=== PATIENT | female | born 1985 | race Caucasian/White ===

== ENCOUNTER 2017-01-18 10:24 | Emergency (ER) | payer OTHER ==
[2017-01-18 10:41] LABS: BILIRUBIN,URINE NEGATIVE (NEGATIVE); PH,URINE 7.5 PH (5.0-7.5)
[2017-01-18 10:43] LABS: UA CHARGE (STRIP ONLY) YES; UR CULTURE IF IND NOT INDICATED
[2017-01-18 10:44] LABS: HCG UR QUAL NEGATIVE
[2017-01-18] MEDS ORDERED: MORPHINE 2 MG/ML SYRINGE IVP STA ×2 (10:48→12:46)
[2017-01-18] MEDS ORDERED: SODIUM CHLORIDE 0.9% 1,000 ML IV ONE (10:48)
[2017-01-18 10:49] LABS: BASOPHILS # (AUTO) 0.1 10^3/uL (0.0-0.1); BASOPHILS % (AUTO) 0.6 %; EOSINOPHILS # (AUTO) 0.1 10^3/uL (0.0-0.7); EOSINOPHILS % (AUTO) 1.3 %; HCT - HEMATOCRIT 41.2 % (37.0-47.0); HGB - HEMOGLOBIN 14.6 g/dL (12.0-16.0); LYMPHOCYTES # (AUTO) 1.3 10^3/uL (1.5-3.5); LYMPHOCYTES % (AUTO) 13.4 %; MEAN CORPUSCULAR HEMOGLOBIN 31.9 pg (27.0-31.0); MEAN CORPUSCULAR HGB CONC 35.4 g/dL (32.0-36.0); MEAN CORPUSCULAR VOLUME 90.1 fL (81.0-99.0); MEAN PLATELET VOLUME 7.6 fL (7.9-10.8); MONOCYTES # (AUTO) 0.4 10^3/uL (0.0-1.0); MONOCYTES % (AUTO) 4.3 %; NEUTROPHILS # (AUTO) 7.9 10^3/uL (1.5-6.6); NEUTROPHILS % (AUTO) 80.4 %; NUCLEATED RED BLOOD CELLS AUTO 0.1 /100WBC; RED BLOOD COUNT 4.57 10^6/uL (4.20-5.40); UNCORRECTED WHITE BLOOD COUNT 9.8 x10^3/uL; WHITE BLOOD COUNT 9.8 x10^3/uL (4.8-10.8)
--- NOTE | 2017-01-18 10:51 | ED Physician Documentation ---
History of Present Illness - Stated complaint Stated Complaint: L SIDE PAIN - Chief complaint Chief Complaint: Abd Pain - Additonal information Additional information: hx from pt 31 f denies preg acute onset atraumatic L flank pain coming in waves, onset this AM no numbness or weakness no feve + NV no abd pain no hematuria dysuria took ibuprofen 600 and one vicodin s relief Review of Systems Constitutional: denies: Fever, Chills Cardiac: denies: Chest pain / pressure Respiratory: denies: Dyspnea GI: reports: Nausea, Vomiting. denies: Abdominal Pain : denies: Dysuria, Hematuria Musculoskeletal: reports: Back pain Neurologic: denies: Focal weakness, Numbness Endocrine: denies: Easy bruising / bleeding Immunocompromised: denies: Immunocompromised PD PAST MEDICAL HISTORY - Present Medications Home Medications: Ambulatory Orders Medication Instructions Recorded Confirmed Ibuprofen [Motrin] 400 mg PO Q6H PRN #30 tablet 01/18/17 Ondansetron Odt [Zofran] 4 mg TL Q6H PRN #10 tablet 01/18/17 Oxycodone HCl/Acetaminophen 1 each PO Q6HR PRN #15 tablet 01/18/17 [Percocet 5-325 mg Tablet] Tamsulosin [Flomax] 0.4 mg PO DAILY #7 capsule 01/18/17 - Allergies Allergies/Adverse Reactions: Allergies Allergy/AdvReac Type Severity Reaction Status Date / Time No Known Drug Allergies Allergy Verified 01/18/17 10:29 PD ED PE NORMAL - Vitals Vital signs reviewed: Yes - General General: Alert and oriented X 3 - Cardiac Cardiac: RRR - Respiratory Respiratory: No respiratory distress, Clear bilaterally - Abdomen Abdomen: Soft, Non tender - Back Back: No: No CVA TTP (+ L CVA TTP) - Derm Derm: Normal color - Neuro Neuro: No motor deficit, No sensory deficit Results - Vitals Vitals: Vital Signs - 24 hr 01/18/17 01/18/17 10:26 12:34 Temperature 36.8 C Heart Rate 56 L 59 L Respiratory 20 16 Rate Blood Pressure 141/90 H 110/72 O2 Saturation 100 98 Oxygen O2 Source Room air - Labs Labs: Laboratory Tests 01/18/17 01/18/17 01/18/17 10:25 10:25 10:45 WBC 9.8 RBC 4.57 Hgb 14.6 Hct 41.2 MCV 90.1 MCH 31.9 H MCHC 35.4 RDW 12.0 Plt Count 325 MPV 7.6 L Neut # 7.9 H Lymph # 1.3 L Victoria # 0.4 Eos # 0.1 Baso # 0.1 Absolute Nucleated RBC 0.01 Nucleated RBC % 0.1 Sodium Potassium Chloride Carbon Dioxide Anion Gap BUN Creatinine Estimated GFR (MDRD) Glucose Calcium Total Bilirubin AST ALT Alkaline Phosphatase Total Protein Albumin Globulin Albumin/Globulin Ratio Lipase Urine Color YELLOW Urine Clarity CLEAR Urine pH 7.5 Ur Specific [place]right 1.015 1.015 Urine Protein NEGATIVE Urine Glucose (UA) NEGATIVE Urine Ketones NEGATIVE Urine Occult Blood NEGATIVE Urine Nitrite NEGATIVE Urine Bilirubin NEGATIVE Urine Urobilinogen 0.2 (NORMAL) Ur Leukocyte Esterase NEGATIVE Ur Microscopic Review NOT INDICATED Urine Culture Comments NOT INDICATED Urine HCG, Qual NEGATIVE 01/18/17 10:45 WBC RBC Hgb Hct MCV MCH MCHC RDW Plt Count MPV Neut # Lymph # Victoria # Eos # Baso # Absolute Nucleated RBC Nucleated RBC % Sodium 135 Potassium 4.1 Chloride 103 Carbon Dioxide 20 L Anion Gap 12.0 BUN 15 Creatinine 0.8 Estimated GFR (MDRD) 84 L Glucose 116 H Calcium 8.9 Total Bilirubin 0.7 AST 16 ALT 16 Alkaline Phosphatase 44 Total Protein 7.5 Albumin 4.5 Globulin 3.0 Albumin/Globulin Ratio 1.5 Lipase 34 Urine Color Urine Clarity Urine pH Ur Specific [place] Urine Protein Urine Glucose (UA) Urine Ketones Urine Occult Blood Urine Nitrite Urine Bilirubin Urine Urobilinogen Ur Leukocyte Esterase Ur Microscopic Review Urine Culture Comments Urine HCG, Qual - Rads (name of study) renal sono Radiology: See rad report (+ hydro, no L ureteral jet, [id number] cystic area with internal septations L kidney recommend outpt routine CT or MRI for further eval) PD MEDICAL DECISION MAKING - ED course ED course: pt prefers no CT - wants to minimize radiation exposure Departure - Departure Disposition: 01 Home, Self Care Clinical Impression: Renal colic on left side Condition: Good Instructions: ED Stone Renal W Colic Prescriptions: Oxycodone HCl/Acetaminophen [Percocet 5-325 mg Tablet] 1 each PO Q6HR PRN #15 tablet PRN Reason: Severe Pain Ibuprofen [Motrin] 400 mg PO Q6H PRN #30 tablet PRN Reason: Pain Ondansetron Odt [Zofran] 4 mg TL Q6H PRN #10 tablet PRN Reason: Nausea / Vomiting Tamsulosin [Flomax] 0.4 mg PO DAILY #7 capsule Comments: The ultrasound does indicate you have a kidney stone - there is urine backed up into the kidney and decreased urine from the left ureter into the bladder. The kidney has good blood flow. The radiologist also saw a cystic structure in the left kidney that is unlikely to be causing the pain but the radiologist recommend you get an outpatient renal mass protocol CT or MRI - please see your PMD or urologist to arrange this. The urine did not show any infection. So it is OK for you to go home with pain medications and to filter the urine to catch the stone. ave the stone to be tested to see if it is calcium or oxalate because then you can modify your diet to prevent future stones Because we used ultrasound imaging to decrease radiation exposure, I cannot say exactly how large or where the stone is located but most stones pass within a few days If you get worse in any way over the holiday weekend (fever, pain not controlled , cannot urinate) come back to the ER
[2017-01-18 11:02] LABS: ALBUMIN/GLOBULIN RATIO 1.5 (1.0-2.2); BILIRUBIN,TOTAL 0.7 mg/dL (0.2-1.0); CALCIUM 8.9 mg/dL (8.5-10.3); CREATININE 0.8 mg/dL (0.4-1.0); POTASSIUM 4.1 mmol/L (3.5-5.0); TOTAL PROTEIN 7.5 g/dL (6.7-8.2)
[2017-01-18] MEDS ORDERED: MORPHINE 2 MG/ML SYRINGE ONE (11:06)
--- NOTE | 2017-01-18 12:53 | Ultrasound Preliminary Report ---
Exam: US RETROPERITONEAL LIMITED IMPRESSION: 1. Mild left hydronephrosis. Left ureteral jet is not seen. 2. Cystic structure measuring 2.7 cm with internal septation at the left kidney, suggestive of cystic mass. Correlation with renal mass protocol CT or MR suggested on a nonemergent basis. [facility] SITE ID: [id number]
--- NOTE | 2017-01-18 12:56 | Ultrasound Report ---
EXAM: RENAL ULTRASOUND EXAM DATE: 01/18/2017 12:28 PM. CLINICAL HISTORY: L flank pain, eval hydro and jet, renal blood flow. COMPARISON: None. TECHNIQUE: Real-time scanning was performed with static images obtained. Limited imaging of the left kidney and urinary bladder only. FINDINGS: Left Kidney: 13.0 cm. Normal echotexture. There is mild hydronephrosis. There is a cystic area measur ing 2.7 x 2.2 x 1.7 cm with internal septation at the midpole of the right kidney. No calculi. Bladder: Right ureteral jet is seen. Left ureteral jet is not seen. Urinary bladder is mildly distend ed. IMPRESSION: 1. Mild left hydronephrosis. Left ureteral jet is not seen. 2. Cystic structure measuring 2.7 cm with internal septation at the left kidney, suggestive of cystic mass. Correlation with renal mass protocol CT or MR suggested on a nonemergent basis. [facility] Referring Provider Line: [phone] SITE ID: [id number]
[2017-01-18 13:42] VITALS: BP 140/88
== END 2017-01-18 13:48 | disposition home or self-care (01) ==
LOC: ED 10:24
DX: N23 Unspecified renal colic (principal); N13.2 Hydronephrosis with renal and ureteral calculous obstruction; N28.89 Other specified disorders of kidney and ureter
CPT/HCPCS: 36415; 76775; 80053; 81003; 81025; 83690; 85025; 93976; 96361; 96374; 96376; 99283; 99284; J2270; 81001; 87086